=== PATIENT | female | born 1980 | race African-American/Black ===

== ENCOUNTER 2019-03-12 03:31 | Emergency (ER) | payer OTHER ==
[~2019-03-12] VITALS: Ht 160 cm; Wt 92.1 kg
[~2019-03-12 03:31] MED LIST: PHEN100C PO
[2019-03-12 04:25] VITALS: BP 139/79
[2019-03-12] MEDS ORDERED: ONDANSETRON PF 4 MG/2 ML VIAL. IV ONE (04:45)
[2019-03-12] MEDS ORDERED: IV NORMAL SALINE 1000ML BAG 1,000 ML IV ONE (04:45)
[2019-03-12 04:59] LABS: INFLUENZA A PATIENT NEGATIVE (NEGATIVE); INFLUENZA B PATIENT NEGATIVE (NEGATIVE)
[2019-03-12 05:11] LABS: BASO % 0 % (0-3); EOS % 0 % (0-3); HEMATOCRIT 41.9 % (36.0-47.0); HEMOGLOBIN 13.4 g/dL (12.0-15.5); LYMPH # 0.4 x10^3/uL (1.0-4.8); LYMPH % 4 % (24-48); MEAN CORPUSCULAR HEMOGLOBIN 24 pg (25-35); MEAN CORPUSCULAR HGB CONC 32 g/dL (31-37); MEAN CORPUSCULAR VOLUME 75 fL (79-100); MONO # 1.4 x10^3/uL (0.0-1.1); MONO % 11 % (0-9); NEUT # 10.2 x10^3/uL (1.8-7.7); NEUT % 85 % (31-73); PLATELET COUNT 194 x10^3/uL (140-400); RED BLOOD COUNT 5.56 x10^6/uL (3.50-5.40); RED CELL DISTRIBUTION WIDTH 13.9 % (11.5-14.5)
[2019-03-12 05:19] LABS: CALCIUM 9.5 mg/dL (8.5-10.1); CREATININE 0.9 mg/dL (0.6-1.0); GFR 85.7; POTASSIUM 3.6 mmol/L (3.5-5.1)
[2019-03-12 05:25] LABS: ALBUMIN 4.4 g/dL (3.4-5.0); TOTAL BILIRUBIN 0.2 mg/dL (0.2-1.0)
--- NOTE | 2019-03-12 05:29 | PHYS DOC ---
Past Medical History Past Medical History: Seizure Past Surgical History: No Surgical History Alcohol Use: None Drug Use: Marijuana Adult General Chief Complaint Chief Complaint: MULTIPLE COMPLAINTS HPI HPI 38-year-old female presents to the emergency department with complaints of fever, cough, vomiting. Patient states this started yesterday. She's not taken any yrlm-iov-igptggb medications. Nothing makes her symptoms worse, nothing makes her symptoms better. She describes sick contacts within the household. She denies fever. Patient with episodes of vomiting in the ER. She denies chest pain, SOB, abdominal pain or headache on exam Review of Systems Review of Systems Constitutional: Denies fever or chills [] Eyes: Denies change in visual acuity, redness, or eye pain [] HENT: Denies nasal congestion or sore throat [] Respiratory: cough Cardiovascular: No additional information not addressed in HPI [] GI: Denies abdominal pain, + nausea, vomiting, no bloody stools or diarrhea [] : Denies dysuria or hematuria [] Musculoskeletal: low back pain Integument: Denies rash or skin lesions [] Neurologic: Denies headache, focal weakness or sensory changes [] All other systems were reviewed and found to be within normal limits, except as documented in this note. Current Medications Current Medications Current Medications Medications (Trade) Dose Ordered Sig/Jerry Start Time Stop Time Status Last Admin Dose Admin Ondansetron HCl (Zofran) 4 mg 1X ONCE 03/12/19 04:45 03/12/19 04:46 DC 03/12/19 04:59 4 MG Sodium Chloride 1,000 ml @ 1,000 mls/hr 1X ONCE 03/12/19 04:45 03/12/19 05:44 DC 03/12/19 04:45 1,000 MLS/HR Allergies Allergies Allergies Coded Allergies Type Severity Reaction Last Updated Verified No Known Drug Allergies 06/24/14 No Physical Exam Physical Exam Constitutional: Well developed, well nourished, no acute distress, non-toxic appearance. [] HENT: Normocephalic, atraumatic, bilateral external ears normal, oropharynx moist, no oral exudates, nose normal. [] Eyes: PERRLA, EOMI, conjunctiva normal, no discharge. [] Cardiovascular:Heart rate regular rhythm, no murmur [] Lungs & Thorax: Bilateral breath sounds clear to auscultation [] Abdomen: Bowel sounds normal, soft, no tenderness, no masses, no pulsatile masses. [] Skin: Warm, dry, no erythema, no rash. [] Back: No tenderness, no CVA tenderness. [] Extremities: No tenderness, no edema. [] Neurologic: Alert and oriented X 3,no focal deficits noted. [] Psychologic: Affect normal, judgement normal, mood normal. [] Current Patient Data Vital Signs Vital Signs Date Time Temp Pulse Resp B/P (MAP) Pulse Ox O2 Delivery O2 Flow Rate FiO2 03/12/19 04:25 98.2 129 30 139/79 (99) 95 Room Air 98.2 Lab Values Laboratory Tests Test 03/12/19 04:32 03/12/19 04:52 Influenza Type A Antigen Negative (NEGATIVE) Influenza Type B Antigen Negative (NEGATIVE) White Blood Count 12.0 x10^3/uL (4.0-11.0) H Red Blood Count 5.56 x10^6/uL (3.50-5.40) H Hemoglobin 13.4 g/dL (12.0-15.5) Hematocrit 41.9 % (36.0-47.0) Mean Corpuscular Volume 75 fL (79-100) L Mean Corpuscular Hemoglobin 24 pg (25-35) L Mean Corpuscular Hemoglobin Concent 32 g/dL (31-37) Red Cell Distribution Width 13.9 % (11.5-14.5) Platelet Count 194 x10^3/uL (140-400) Neutrophils (%) (Auto) 85 % (31-73) H Lymphocytes (%) (Auto) 4 % (24-48) L Monocytes (%) (Auto) 11 % (0-9) H Eosinophils (%) (Auto) 0 % (0-3) Basophils (%) (Auto) 0 % (0-3) Neutrophils # (Auto) 10.2 x10^3/uL (1.8-7.7) H Lymphocytes # (Auto) 0.4 x10^3/uL (1.0-4.8) L Monocytes # (Auto) 1.4 x10^3/uL (0.0-1.1) H Eosinophils # (Auto) 0.0 x10^3/uL (0.0-0.7) Basophils # (Auto) 0.0 x10^3/uL (0.0-0.2) Segmented Neutrophils % 88 % (35-66) H Band Neutrophils % 2 % (0-9) Lymphocytes % 4 % (24-48) L Monocytes % 6 % (0-10) Toxic Vacuolation Slight Platelet Estimate Adequate (ADEQUATE) Sodium Level 138 mmol/L (136-145) Potassium Level 3.6 mmol/L (3.5-5.1) Chloride Level 99 mmol/L (98-107) Carbon Dioxide Level 27 mmol/L (21-32) Anion Gap 12 (6-14) Blood Urea Nitrogen 10 mg/dL (7-20) Creatinine 0.9 mg/dL (0.6-1.0) Estimated GFR (Cockcroft-Gault) 85.7 BUN/Creatinine Ratio 11 (6-20) Glucose Level 97 mg/dL (70-99) Calcium Level 9.5 mg/dL (8.5-10.1) Total Bilirubin 0.2 mg/dL (0.2-1.0) Aspartate Amino Transferase (AST) 17 U/L (15-37) Alanine Aminotransferase (ALT) 33 U/L (14-59) Alkaline Phosphatase 112 U/L (46-116) Total Protein 9.0 g/dL (6.4-8.2) H Albumin 4.4 g/dL (3.4-5.0) Albumin/Globulin Ratio 1.0 (1.0-1.7) Laboratory Tests 03/12/19 04:52 Laboratory Tests 03/12/19 04:52 EKG EKG [] Radiology/Procedures Radiology/Procedures [] Course & Med Decision Making Course & Med Decision Making Pertinent Labs and Imaging studies reviewed. (See chart for details) 38-year-old female presents to the emergency department with complaints of fever, cough, vomiting. Patient states this started yesterday. She's not taken any nhdh-yzd-sswoafu medications. Nothing makes her symptoms worse, nothing makes her symptoms better. She describes sick contacts within the household. She denies fever. Patient with episodes of vomiting in the ER. She denies chest pain, SOB, abdominal pain or headache on exam Labs obtained IVF, zofran given in the ER with improvement Afebrile in the ER Influenza negative Recommend dc home with symptomatic treatment Return precautions provided Carol Disclaimer Dragon Disclaimer This electronic medical record was generated, in whole or in part, using a voice recognition dictation system. Departure Departure Impression: Primary Impression: Viral syndrome Additional Impression: Nausea & vomiting Disposition: 01 HOME, SELF-CARE Condition: IMPROVED Referrals: NO PCP (PCP) Patient Instructions: Nausea and Vomiting, Vsmi-ml-Aghm, Viral Syndrome Additional Instructions: Recommend follow up with PCP 3 - 5 days Return to the ER with worsening symptoms, intractable pain, fever, altered mental status Tylenol/Motrin as needed for pain Take antibiotics as directed Scripts Ondansetron Hcl (ZOFRAN) 4 Mg Tablet 1 TAB PO PRN Q6-8HRS, #12 TAB Prov: ELSA CROCKER MD 03/12/19 Amoxicillin (AMOXICILLIN) 500 Mg Capsule 1 CAP PO BID for infection for 7 Days, #14 CAP Prov: ELSA CROCKER MD 03/12/19 Problem Qualifiers Additional Impression: Nausea & vomiting Vomiting type: unspecified Vomiting Intractability: unspecified Qualified Codes: R11.2 - Nausea with vomiting, unspecified ELSA CROCKER MD Mar 12, 2019 05:29
[2019-03-12] MEDS ORDERED: ONDA4TAB7 PO (06:22)
[2019-03-12] MEDS ORDERED: AMOX500C PO (06:22)
[2019-03-12 07:36] LABS: % BANDS 2 % (0-9); % LYMPHS 4 % (24-48); % MONOS 6 % (0-10); % SEGS 88 % (35-66)
[2019-03-12 07:37] LABS: PLT ESTIMATE ADEQUATE (ADEQUATE); TOXIC VACUOLATION SLIGHT
== END 2019-03-12 06:35 | disposition home or self-care (01) ==
LOC: ER 03:31
DX: B34.9 Viral infection, unspecified (principal); R11.2 Nausea with vomiting, unspecified; F12.90 Cannabis use, unspecified, uncomplicated
CPT/HCPCS: 36415; 80053; 85007; 85025; 87804; 96361; 96374; 99284; J2405; J7030

== ENCOUNTER 2020-01-30 13:50 | Emergency (ER) | payer OTHER ==
[~2020-01-30] VITALS: Ht 160 cm; Wt 70.0 kg
[~2020-01-30 13:50] MED LIST changes: +AMOX500C PO; +ONDA4TAB7 PO
--- NOTE | 2020-01-30 14:03 | PHYS DOC ---
Past Medical History Past Medical History: Seizure Past Surgical History: No Surgical History Smoking Status: Current Every Day Smoker Alcohol Use: None Drug Use: Marijuana General Adult EDM: Chief Complaint: SEIZURE HPI: HPI: 39-year-old female past medical history significant for seizure disorder since childhood the patient attributes to head injury, tobacco dependence and marijuana use, presents to the ED after son witnessed patient have tonic-clonic seizure such that patient went unresponsive. Son reports seizure lasted for less than 2 minutes. Patient admits that she has missed her Dilantin for the past few days. Takes Dilantin 400 mg and states she does not need any medication refills. Follows at [facility] with Dr. Reyes. Last menstrual period was 2 weeks ago. EMS reported patient was postictal and upset/slightly agitated upon their arrival, ems able to verbal redirect pt for full medical evaluation (pt was too confused to make her decisions at that time-family witnessed event and agreed with transport). Patient reports her last seizure was over 1 year ago. No change in her medications. Patient does not drink alcohol stating "I can't, I'll have a seizure." Does admit to occasional marijuana use. No head trauma. Is not on any anticoagulants. Patient with no recent fever/n/v/d/c/pain, felt well this morning. States she knew she was going to have a seizure but has no recollection of transport. Is embarrassed and tearful in ed "I hate when this happens." GCS 15 on ed arrival. Glucose 98 per ems. Patient with no history of status epilepticus, intubation or admission for uncontrolled seizures. Son present during evaluation and agrees with/confirms his mothers' statements. EMR was reviewed and patient was taking Dilantin 400 mg in 2014. Review of Systems: Review of Systems: Constitutional: Denies fever or chills. [] Eyes: Denies change in visual acuity. [] HENT: Denies nasal congestion or sore throat. [] Respiratory: Denies cough or shortness of breath or hemoptysis Cardiovascular: Denies chest pain or edema or syncope GI: Denies abdominal pain, nausea, vomiting, bloody stools or diarrhea. [] : Denies dysuria or hematuria or increased urinary frequency urgency or vaginal bleeding/abnormal vaginal discharge Musculoskeletal: Denies back pain or joint pain. [] Integument: Denies rash or diaphoresis Neurologic: Denies headache, focal weakness or sensory changes, midline neck pain Endocrine: Denies polyuria or polydipsia. [] Lymphatic: Denies swollen glands. [] Psychiatric: Denies depression or anxiety, homicidal or suicidal ideations Heart Score: Risk Factors: Risk Factors: DM, Current or recent (<one month) smoker, HTN, HLP, family history of CAD, obesity. Risk Scores: Score 0 - 3: 2.5% MACE over next 6 weeks - Discharge Home Score 4 - 6: 20.3% MACE over next 6 weeks - Admit for Clinical Observation Score 7 - 10: 72.7% MACE over next 6 weeks - Early Invasive Strategies Allergies: Allergies: Allergies Coded Allergies Type Severity Reaction Last Updated Verified No Known Drug Allergies 06/24/14 No Physical Exam: PE: Constitutional: Well developed, well nourished, no acute distress, non-toxic appearance. [] HENT: Normocephalic, atraumatic, bilateral external ears normal, oropharynx moist, possible mild right lateral1-2 tongue bruise-pt reports no pain, no oral exudates, nose normal. [] Eyes: PERRLA, EOMI, conjunctiva normal, no discharge. [] Neck: Normal range of motion, no tenderness, supple, no stridor. [] Cardiovascular:Heart rate regular rhythm, no murmur [] Lungs & Thorax: Bilateral breath sounds clear to auscultation [] Abdomen: Bowel sounds normal, soft, no tenderness, no masses, no pulsatile masses, no urinary or bowel incontinence Skin: Warm, dry, no erythema, no rash. [] Back: No tenderness, no CVA tenderness. [] Extremities: No tenderness, no cyanosis, no clubbing, ROM intact, no edema. [] Neurologic: Alert and oriented X 3, normal motor function, normal sensory function, no focal deficits noted. [] GCS 15 on arrival Psychologic: Affect normal, judgement normal, crying/emotional and states she's embarrassed Nexus C-spine criteria are negative: There is no post midline tenderness, the patient is not intoxicated, there is a normal level of alertness, there are no focal neurologic deficits and there are no distracting injuries. EKG: EKG: [] Radiology/Procedures: Radiology/Procedures: [] Course & Med Decision Making: Course & Med Decision Making Pertinent Labs and Imaging studies reviewed. (See chart for details) Concern for mild medication noncompliance with breakthrough seizure, no signs of head/neck trauma in a well-appearing female with supportive family who agree with patient's history, patient awake and alert with decision-making capacity. Patient reports she took her dilantin 400mg after she had her seizure today. Patient with no signs of infection. I recommended basic lab work, urinalysis and chest x-ray to evaluate for any infection, dialysis. Patient declined states she is feels well but agrees to be observed in the ER briefly. Patient with no recurrence of seizures. Was given Keppra in the ED. Son and pt advised that she should not drive/swin/or participate in potentially dangerous activitie s until cleared by her neurologist. Strict ED return precautions were given for recurrent seizures, confusion, inability return to her baseline mental status or trauma. I encouraged urgent outpatient follow-up with PMD and neurology. Life-threatening processes were considered but are low suspicion at this time, given history and physical exam. Pt was educated on all prescription medications and adverse effects. All patient's questions were answered and pt was stable at time of discharge. Life/limb-threatening differential includes but is not limited to, intracranial hemorrhage, diffuse axonal injury, spinal cord syndrome, unstable cervical fracture or infection/sepsis, toxidrome, overdose, status epilepticus, encephalopathy, blunt chest abdomen pelvic trauma or agonal respirations I spoken with the patient and her caregivers. I explained the patient's condition, diagnoses and treatment plan based on the information available to me at this time. I have answered the patient and her caregiver's questions and addressed any concerns. The patient and her caregivers have a good understanding of patient's diagnosis, condition and treatment plan as can be expected at this point. Vital signs have been stable. Patient's condition is stable and appropriate for discharge from the emergency department. Patient will pursue further outpatient evaluation with primary care physician or other designated or consulting physician as outlined in the discharge instructions. The patient and/or caregivers are agreeable to this plan of care and follow-up instructions have been explained in detail. The patient and/or caregivers have received these instructions in written form and have expressed an understanding of the discharge instructions. The patient and/or caregivers are aware that any significant change of condition or worsening of symptoms should prompt immediate return to this or the closest emergency department or call to [email or web address] Medina Disclaimer: Carol Disclaimer: This electronic medical record was generated, in whole or in part, using a voice recognition dictation system. Departure Departure Impression: Primary Impression: Seizure Additional Impression: Seizure disorder Disposition: 01 DC HOME SELF CARE/HOMELESS Condition: STABLE Referrals: NO PCP (PCP) FOLLOW UP WITH FAMILY MEDICINE: Family Medicine Address: [address] [place] [address] Patient Instructions: Seizure, Adult Additional Instructions: FOLLOW UP WITH NEUROLOGY: [facility] Address: [address] [place] [address] EMERGENCY DEPARTMENT GENERAL DISCHARGE INSTRUCTIONS Thank you for coming to [facility] Emergency Department (ED) today and trusting us with you care. We trust that you had a positive experience in our Emergency Department. If you wish to speak to the department management, you may call the Director at [phone]. YOUR FOLLOW UP INSTRUCTIONS ARE FOLLOWS: 1. Do you have a private Doctor? If you do not have a private doctor, please ask for a resource list of physicians or clinics that may be able to assist you with follow up care. 2. The Emergency Physicain has interpreted your x-rays. The X-Ray specialist will also review them. If there is a change in the findings, you will be notified in 48 hours when at all possible. 3. A lab test or culture has been done, your results will be reviewed and you will be notified if you need a change in treatment. ADDITIONAL INSTRUCTIONS AND INFORMATION: 1. Your care today has been supervised by a physician who is specially trained in emergency care. Many problems require more than one evaluation for a complete diagnosis and treatment. We recommend that you schedule your follow up appointment as recommended to ensure complete treatment of you illness or injury. If you are unable to obtain follow up care and continue to have a problem, or if your condition worsens, we recommend that you return to the ED. 2. We are not able to safely determine your condition over the phone nor are we able to give sound medical advice over the phone. For these safety reasons, if you call for medical advice we will ask you to come to the ED for further evaluation. 3. If you have any questions regarding these discharge instructions please call the ED at [phone]. SAFETY INFORMATION: In the interest of safety, wellness, and injury prevention; we encourage you to wear your sealbelt, if you smoke; quite smoking, and we encourage family to use a protective helmet for bicycling and other sporting events that present an increased risk for head injury. IF YOUR SYMPTOMS WORSEN OR NEW SYMPTOMS DEVELOP, OR YOU HAVE CONCERNS ABOUT YOUR CONDITION; OR IF YOUR CONDITION WORSENS WHILE YOU ARE WAITING FOR YOUR FOLLOW UP APPOINTMENT; EITHER CONTACT YOUR PRIMARY CARE DOCTOR, THE PHYSICIAN WHOSE NAME AND NUMBER YOU WERE GIVEN, OR RETURN TO THE ED IMMEDIATELY. DMITRI RUBY DO Jan 30, 2020 14:02
[2020-01-30] MEDS: PHENYTOIN SODIUM EXTENDED 100 MG CAPSULE PO ONE ×2 (14:15→14:35)
[2020-01-30] MEDS ORDERED: levETIRAcetam 500 MG TABLET PO SCH (14:30)
[2020-01-30] MEDS ORDERED: ALPRAZolam 0.25 MG TABLET ONE (14:33)
[2020-01-30] MEDS ORDERED: ALPRAZolam 0.25 MG TABLET PO ONE (14:45)
[2020-01-30 15:30] VITALS: BP 137/62
== END 2020-01-30 15:42 | disposition home or self-care (01) ==
LOC: ER 13:50
DX: G40.909 Epilepsy, unspecified, not intractable, without status epilepticus (principal); F17.290 Nicotine dependence, other tobacco product, uncomplicated
CPT/HCPCS: 99281; 99283